=== PATIENT | female | born 1980 | race Two or more races ===

== ENCOUNTER 2019-10-19 16:51 | Emergency (ER) | payer BC ==
[~2019-10-19] VITALS: Ht 162.6 cm; Wt 81.6 kg
[2019-10-19 17:10] VITALS: BP 127/83
[2019-10-19] MEDS ORDERED: KETOROLAC TROMETHAMINE INJ 60 MG/2 ML VIAL IM ONE (18:00)
[2019-10-19] MEDS ORDERED: KETOROLAC TROMETHAMINE INJ 30 MG/ML VIAL ONE (19:04)
== END 2019-10-19 20:37 | disposition home or self-care (01) ==
LOC: ER 16:54
DX: S46.812A Strain of other muscles, fascia and tendons at shoulder and upper arm level, left arm, initial encounter (principal); Z98.890 Other specified postprocedural states; X50.0XXA Overexertion from strenuous movement or load, initial encounter; Y93.89 Activity, other specified; Y92.89 Other specified places as the place of occurrence of the external cause; Y99.8 Other external cause status
CPT/HCPCS: 96372; 99283; J1885

== ENCOUNTER 2019-11-05 19:16 | Emergency (ER) | payer BC ==
[~2019-11-05] VITALS: Ht 162.6 cm; Wt 81.6 kg
[2019-11-05 19:45] VITALS: BP 152/88
[2019-11-05] MEDS ORDERED: KETOROLAC TROMETHAMINE INJ 60 MG/2 ML VIAL IM ONE (20:00)
[2019-11-05] MEDS ORDERED: KETOROLAC TROMETHAMINE INJ 30 MG/ML VIAL ONE (20:03)
== END 2019-11-05 20:19 | disposition home or self-care (01) ==
LOC: ER 19:18
DX: J06.9 Acute upper respiratory infection, unspecified (principal); Z98.890 Other specified postprocedural states
CPT/HCPCS: 96372; 99283; J1885

== ENCOUNTER 2020-05-11 14:01 | Emergency (ER) | payer BC ==
[~2020-05-11] VITALS: Ht 162.6 cm; Wt 84.8 kg
--- NOTE | 2020-05-11 14:10 | NUR ---
Left eye blurred vision - noted when she woke up this morning at 10 AM. Patient a/ox4, breathing even and unlabored, no sob noted, needs attended, kept comfortable.
[2020-05-11] MEDS ORDERED: PROCHLORPERAZINE EDISYLATE 10 MG/2 ML VIAL IVP ONE (14:30)
[2020-05-11] MEDS ORDERED: diphenhydrAMINE HCL 50 MG/ML VIAL IV ONE (14:30)
[2020-05-11] MEDS ORDERED: IV NS 0.9% 1,000 ML BAG IV ONE (14:30)
[2020-05-11] MEDS ORDERED: diphenhydrAMINE HCL 50 MG/ML VIAL ONE (14:45)
[2020-05-11] MEDS ORDERED: PROCHLORPERAZINE EDISYLATE 10 MG/2 ML VIAL ONE (14:45)
[2020-05-11 14:52] LABS: BASOPHILS % (AUTO) 0.5 % (0.0-2.0); HEMATOCRIT 42 % (33-45); HEMOGLOBIN 14.2 g/dL (11.5-14.8); LYMPHOCYTES # (AUTO) 2.2 /CMM (0.8-4.8); LYMPHOCYTES % (AUTO) 34.1 % (20.0-44.0); MEAN CORPUSCULAR HGB CONC 34 g/dl (31.0-36.0); MEAN CORPUSCULAR VOLUME 86 fL (82-100); MONOCYTES # (AUTO) 0.5 /CMM (0.1-1.30); MONOCYTES % (AUTO) 8.5 % (2.0-12.0); NEUTROPHILS # (AUTO) 3.5 /CMM (1.8-8.9); NEUTROPHILS % (AUTO) 54.9 % (43.0-81.0); PLATELET COUNT (AUTO) 264 /CMM (150-450); RED BLOOD CELL COUNT(AUTO) 4.93 MIL/uL (4.0-5.2); WHITE BLOOD COUNT (AUTO) 6.4 K/uL (4.3-11.0)
--- NOTE | 2020-05-11 14:55 | NUR ---
URINE SENT TO LAB.
[2020-05-11 15:04] LABS: CALCIUM, SERUM 8.9 mg/dL (8.5-10.1); CREATININE 0.6 mg/dL (0.6-1.3); POTASSIUM 3.5 mmol/L (3.5-5.1)
[2020-05-11] MEDS ORDERED: IV NS 0.9% 250 ML IV ONE (15:15)
[2020-05-11] MEDS ORDERED: IOHEXOL-350 100 ML VIAL IV ONE (15:15)
--- NOTE | 2020-05-11 15:19 | NUR ---
PATIENT TAKEN TO CT.
--- NOTE | 2020-05-11 15:40 | NUR ---
patient came back from ct.
[2020-05-11 15:58] LABS: APPEARANCE,URINE CLEAR (CLEAR); BILIRUBIN,URINE NEGATIVE (NEGATIVE); BLOOD, URINE TRACE-INTA Ery/uL (NEGATIVE); COLOR,URINE YELLOW (YELLOW); KETONES,URINE NEGATIVE (NEGATIVE); LEUKOCYTE ESTERASE ,URINE NEGATIVE (NEGATIVE); NITRITE, URINE NEGATIVE (NEGATIVE); PROTEIN,URINE NEGATIVE (NEGATIVE); UGLUCOSE NEGATIVE (NEGATIVE); UROBILINOGEN,URINE 0.2 EU/dL (0.2)
[2020-05-11] MEDS ORDERED: FLUORESCEIN SODIUM OPHTH 1 EA STRIP OP ONE (16:00)
[2020-05-11] MEDS ORDERED: TETRACAINE HCL 0.5% OPHTALMIC 15 ML BOTTLE OP ONE (16:00)
[2020-05-11] MEDS ORDERED: FLUORESCEIN SODIUM OPHTH 1 EA STRIP ONE (16:01)
[2020-05-11 16:04] LABS: BACTERIA,URINE Rare /HPF (None Seen); MUCUS,URINE Few /LPF (None Seen); WBC,URINE 0-2 /HPF (0-3)
--- NOTE | 2020-05-11 16:56 | NUR ---
Patient a/ox4, sts she feels better, blurry vision has improved. IV removed. Catheter intact and site benign. Pressure and 4x4 applied to site. No bleeding noted.Patient discharged to home in stable condition. Written and verbal after care instructions given. Patient verbalizes understanding of instruction.
--- NOTE | 2020-05-11 17:04 | NUR ---
unable to depart patient, [facility] freezes.
[2020-05-11 18:30] VITALS: BP 127/68
== END 2020-05-11 17:00 | disposition home or self-care (01) ==
LOC: ER 14:03
DX: H57.02 Anisocoria (principal); H57.04 Mydriasis; R42 Dizziness and giddiness; Z98.890 Other specified postprocedural states
CPT/HCPCS: 36415; 70496; 70498; 71045; 80048; 81001; 84703; 85025; 85652; 85730; 96360; 99285; J7030; J7050; Q9967; 81000-TC; J0780; J1200